=== PATIENT | female | born 1995 | race Two or more races ===

== ENCOUNTER 2020-02-15 15:30 | Emergency (ER) | payer OTHER, SELFPAY | END 2020-02-15 19:03 | disposition left against medical advice (07) | PROVIDERS: Emergency Provider Emergency Medicine | DX: R06.02 Shortness of breath (principal) ==

== ENCOUNTER 2020-03-11 13:57 | Outpatient (REF) | payer OTHER, SELFPAY | END 2020-03-11 13:58 | disposition home or self-care (01) | LOC: HO.LAB 13:57 | PROVIDERS: Visit Provider Internal Medicine | DX: Z20.822 Contact with and (suspected) exposure to COVID-19 (principal) | CPT/HCPCS: 36415; C9803; U0003; U0005 ==

== ENCOUNTER 2020-04-09 12:12 | Outpatient (REF) | payer OTHER, SELFPAY | END 2020-04-09 12:13 | disposition home or self-care (01) | LOC: HO.LAB 12:12 | PROVIDERS: Visit Provider Internal Medicine | DX: Z20.822 Contact with and (suspected) exposure to COVID-19 (principal) | CPT/HCPCS: 36415; C9803; U0003; U0005 ==

== ENCOUNTER 2020-04-20 14:31 | Outpatient (REF) | payer OTHER, SELFPAY | END 2020-04-20 14:32 | disposition home or self-care (01) | LOC: HO.LAB 14:31 | PROVIDERS: Visit Provider Internal Medicine | DX: Z20.822 Contact with and (suspected) exposure to COVID-19 (principal) | CPT/HCPCS: 36415; C9803; U0003; U0005 ==

== ENCOUNTER 2020-10-23 15:49 | Outpatient (REF) | payer OTHER, SELFPAY | END 2020-10-23 15:50 | disposition home or self-care (01) | LOC: HO.LAB 15:49 | PROVIDERS: Visit Provider Internal Medicine | DX: Z20.822 Contact with and (suspected) exposure to COVID-19 (principal) | CPT/HCPCS: C9803; U0003; U0005 ==

== ENCOUNTER 2020-11-22 17:41 | Emergency (ER) | payer OTHER, SELFPAY ==
--- NOTE | 2020-11-22 17:53 | ED_ITS ---
HPI - URI/Sore Throat General Chief Complaint: Fever Stated Complaint: COUGH SORE THROAT Source: patient Mode of arrival: ambulatory Limitations: no limitations History of Present Illness HPI Narrative: 24-year-old female presents with upper respiratory symptoms. Requesting COVID-19 and flu testing. MD elicited complaint: cough, sore throat and nasal congestion Onset (ago): day(s) (3) Consistency: constant Severity: mild Description of mucous: clear and watery Able to tolerate fluids by mouth: Yes Context: sick contacts Associated symptoms: denies other symptoms Treatments prior to arrival: none Related Data Allergies Allergy/AdvReac Type Severity Reaction Status Date / Time No Known Allergies Allergy Verified 11/22/20 18:04 [No Known Allergies*] Review of Systems Review of Systems: Constitutional: No Fever, No Chills ENT/Mouth: No Ear Pain, No Hoarseness, positive sore throat Eyes: No Eye Pain, No Swelling, No Redness, No Foreign Body Cardiovascular: No Chest Pain, No SOB Respiratory: Positive Cough, No Dyspnea Gastrointestinal: No Nausea, No Vomiting, No Diarrhea, No abdominal Pain Genitourinary: No Dysuria, No Hematuria Musculoskeletal: No joint pain, No Myalgias, No Joint Swelling Skin: No Skin lacerations, No rash Neuro: No Weakness, No Numbness, No Paresthesias, No Loss of Consciousness, No Dizziness, No Headache Psych: No Anxiety/Panic, No Depression Heme/Lymph: no easy bruising, no Lymphadenopathy Endocrine: No Polyuria, No Polydipsia Yes all other systems are reviewed and are negative PMFSH Past Medical History Attestation statement: The following information was validated with the patient. Source: old records reviewed Medical History (Updated 11/22/20 @ 19:01 by Gabby Cedillo NP) Anxiety Asthma Depression Gastritis Social History Social History Advance Directives: No Advance Directives Information Provided: No Patient : No Physical Exam Vital Signs: Vital Signs: Last Vital Signs Temp 99.0 F 11/22/20 18:05 Pulse 98 11/22/20 18:05 Resp 18 11/22/20 18:05 BP 111/73 11/22/20 18:05 Pulse Ox 97 11/22/20 18:05 Body Mass Index 22.4 Appearance: Alert. Oriented X3. No acute distress. Eyes: Pupils equal, round and reactive to light. Sclera nonicteric. ENT: Pharynx normal. Moist mucous membranes. Neck: Normal inspection. Neck supple. CVS: Normal heart rate and rhythm. Pulses normal. Respiratory: No respiratory distress. Breath sounds normal. Abdomen: Soft and nontender. Skin: Skin warm and dry. Normal skin color. Normal skin turgor. Extremities: No lower extremity edema. Moves all extremities against resist ance. Neuro: No motor deficit. No sensory deficit. Cranial nerves 2-12 intact. Course Course Course Narrative: 24-year-old female presents with upper respiratory symptoms. Presents with her children for testing for COVID-19. Physical exam is unremarkable. Vital signs are within normal limits and stable. Afebrile and nontoxic. COVID test is negative. Patient discharged home with supportive measures. Patient verbalized understanding of and agrees to plan of care discharge home. MDM - URI/Sore Throat Differential Diagnosis Differential diagnosis: Likely upper respiratory infection, sinusitis, viral infection, influenza and pharyngitis Medical Records Attestation: I reviewed the patient's medical records. Lab Data Attestation: I reviewed the patient's lab results. Labs: Lab Results 11/22/20 11/22/20 Range/Units 18:02 18:02 Coronavirus (PCR) NEGATIVE (Negative) Influenza Type A (PCR) NEGATIVE (Negative) Influenza Type B (PCR) NEGATIVE (Negative) RSV RNA Qual (PCR) NEGATIVE (Negative) S. pyogenes GrpA RENATA Negative (Negative) Discharge Plan Discharge Clinical Impression: Viral infection Patient Disposition: Home, Self-Care Instructions: Viral Syndrome (ED) Additional Instructions: You were evaluated for upper respiratory symptoms. Please continue to alternate Tylenol and Motrin as needed for pain management and fever control. Encourage fluids COVID test was negative. Thank you for choosing this emergency department for evaluation. Please follow-up with primary care physician as needed. Return to the emergency department for any new, concerning, or worsening symptoms. Interventions: ED Discharge Assessment Last Done: 11/22/20 19:27 Discharge Date/Time: 11/22/20 19:27
[2020-11-22 18:05] VITALS: BP 111/73; PULSE 98; RESP 18; TEMP 37.2; O2SAT 97; BMI 22.4
[2020-11-22 18:29] LABS: IDNOW Serial# 9DD0AD1C; Strep A Nucleic Acid Negative (Negative)
[2020-11-22 18:55] LABS: Influenza A PCR NEGATIVE (Negative); Influenza B PCR NEGATIVE (Negative); Resp Syncy Virus RNA Qual PCR NEGATIVE (Negative); SARS COV2 PCR INHOUSE NEGATIVE (Negative)
== END 2020-11-22 19:27 | disposition home or self-care (01) ==
PROVIDERS: Nurse Practitioner Family; Emergency Provider Emergency Medicine
DX: B34.9 Viral infection, unspecified (principal); J45.909 Unspecified asthma, uncomplicated; Z20.822 Contact with and (suspected) exposure to COVID-19
CPT/HCPCS: 0241U; 36415; 87651; 99282; 99283

== ENCOUNTER 2021-02-22 08:01 | Outpatient (REF) | payer OTHER, SELFPAY ==
[2021-02-22 11:16] LABS: Binax Internal Control QC Valid; Binax Now Covid-19 Ag Positive (Negative)
== END 2021-02-22 08:02 | disposition home or self-care (01) ==
LOC: HO.LAB 08:01
PROVIDERS: Visit Provider Internal Medicine
DX: Z20.822 Contact with and (suspected) exposure to COVID-19 (principal)
CPT/HCPCS: C9803

== ENCOUNTER 2021-03-04 08:08 | Outpatient (REF) | payer OTHER, SELFPAY ==
[2021-03-04 09:34] LABS: Binax Internal Control QC Valid; Binax Now Covid-19 Ag Negative (Negative)
== END 2021-03-04 08:09 | disposition home or self-care (01) ==
LOC: HO.LAB 08:08
PROVIDERS: Visit Provider Internal Medicine
DX: Z20.822 Contact with and (suspected) exposure to COVID-19 (principal)
CPT/HCPCS: C9803

== ENCOUNTER 2021-11-01 19:39 | Emergency (ER) | payer OTHER, SELFPAY ==
[2021-11-01 21:49] VITALS: BP 125/56; PULSE 65; RESP 16; TEMP 36.7; O2SAT 100; BMI 22.6
[2021-11-01 22:05] LABS: MANUAL DIFF FLAG NO
[2021-11-01 22:11] LABS: Basophils Percent Auto 0.3 % (0-2); Eosinophils Absolute Auto 0.6 X10*3/uL (0.0-0.4); Eosinophils Percent Auto 7.6 % (0-4); Hematocrit 38.8 % (37.0-47.0); Hemoglobin 12.5 g/dl (12.0-16.0); Imm Gran Abs Auto 0.01 X10*3/uL (0.00-0.03); Imm Gran Pct Auto 0.1 % (0.0-0.4); Lymphocytes Percent Auto 38.7 % (20-40); Mean Corpuscular HGB Conc 32.2 g/dl (31.0-35.0); Mean Corpuscular Hemoglobin 28.9 pg (27.0-33.0); Mean Corpuscular Volume 89.8 fL (80.0-98.0); Monocytes Absolute Auto 0.7 X10*3/uL (0.1-1.2); Monocytes Percent Auto 8.9 % (2-11); Neutrophils Absolute Auto 3.4 x10*3/uL (2.0-8.3); Neutrophils Percent Auto 44.4 % (45-73); Platelet Count 263 X10*3/uL (160-400); Red Blood Count 4.32 X10*6/uL (4.20-5.50); Red Cell Distribution Width 12.6 % (11.0-16.0); White Blood Count 7.7 X10*3/uL (4.8-10.8)
[2021-11-01 22:16] LABS: COVID-19 Test Negative (Negative); IDNOW Serial# 16C4AD1C
[2021-11-01 22:23] LABS: Anion Gap 14 (12-20); Blood Urea Nitrogen 10 mg/dL (9-16); Carbon Dioxide 26 mmol/L (22-29); Chloride 105 mmol/L (96-108); Creatinine Clr Calc Pharmacy 101.5; Estimated Glomerular Filt Rate > 60; Glucose Random 99 mg/dL (60-115); Potassium 3.8 mmol/L (3.3-5.1); Sodium 141 mmol/L (135-145)
--- NOTE | 2021-11-02 03:01 | ED.GENADULT ---
HPI - General Adult General Chief complaint: General Medical Stated complaint: vomiting Time Seen by Provider: 11/02/21 00:01 Source: patient Mode of arrival: ambulatory Limitations: no limitations History of Present Illness HPI narrative: Patient been having dry cough for last 3 days nauseated vomited today of about 4 times no diarrhea no shortness of breath Related Data Previous Rx's Medication Instructions Recorded ondansetron 4 mg disintegrating 4 mg PO Q6-8H PRN nausea and 11/02/21 tablet vomiting #7 tabs Allergies Allergy/AdvReac Type Severity Reaction Status Date / Time No Known Allergies Allergy Verified 11/22/20 18:04 [No Known Allergies*] Review of Systems Review of Systems: Yes all other systems are reviewed and are negative [facility] Past Medical History Medical History Anxiety Asthma Depression Gastritis Social History Social History Alcohol intake: never Patient Tobacco Use Status: Never used Tobacco Use of substances other than those prescribed or required for medical reasons: No Advance Directives: No Physical Exam ED Vital Signs: Vital Signs - 24 hr 11/01/21 21:49 11/02/21 03:05 11/02/21 04:38 Temperature 98.1 F 98.2 F 98.1 F Pulse Rate 65 57 63 Respiratory Rate 16 16 16 Blood Pressure 125/56 L 100/54 L 96/4 L Pulse Oximetry 100 99 100 Oxygen Delivery Method Room Air Room Air Room Air BMI result Body Mass Index 22.6 Appearance: Alert. Oriented X3. No acute distress. Eyes: PERRLA, No Nystagmus ENT: Pharynx normal. Oral Mucosa moist Neck: Normal inspection. Neck supple. CVS: Normal heart rate and rhythm. Pulses normal. Respiratory: No respiratory distress. Equal air entry bilateral, no wheezing/rales/rhonchi Abdomen: Soft and nontender. Bowel sounds are present, no mass palpable, no CVA tenderness Skin: Skin warm and dry. Normal skin color. Normal skin turgor. Extremities: No lower extremity edema. No calf tenderness Neuro: Oriented X 3. No motor deficit. No sensory deficit.No cerebellar signs , cranial nerves II-XII intact Medical Decision Making [facility] Narrative Medical decision making narrative: Patient's labs are stable no nausea no vomiting in the ER COVID negative discharge patient home [facility] Lab Data Lab results reviewed: Yes I reviewed the patient's lab results. Result diagrams: 11/01/21 21:53 11/01/21 21:53 Labs: Lab Results 11/01/21 11/01/21 11/01/21 Range/Units 21:53 21:53 21:53 WBC 7.7 (4.8-10.8) X10*3/uL RBC 4.32 (4.20-5.50) X10*6/uL Hgb 12.5 (12.0-16.0) g/dl Hct 38.8 (37.0-47.0) % MCV 89.8 (80.0-98.0) fL MCH 28.9 (27.0-33.0) pg MCHC 32.2 (31.0-35.0) g/dl RDW 12.6 (11.0-16.0) % Plt Count 263 (160-400) X10*3/uL MPV 10.0 (9.4-12.3) fL Immature Gran % (Auto) 0.1 (0.0-0.4) % Neut % (Auto) 44.4 L (45-73) % Lymph % (Auto) 38.7 (20-40) % [place] % (Auto) 8.9 (2-11) % Eos % (Auto) 7.6 H (0-4) % Baso % (Auto) 0.3 (0-2) % Lymph # (Auto) 3.0 (1.2-4.9) X10*3/uL [place] # (Auto) 0.7 (0.1-1.2) X10*3/uL Eos # (Auto) 0.6 H (0.0-0.4) X10*3/uL Baso # (Auto) 0.0 (0.0-0.2) X10*3/uL Abs Immat Gran (auto) 0.01 (0.00-0.03) X10*3/uL Absolute Neuts (auto) 3.4 (2.0-8.3) x10*3/uL Absolute Nucleated RBC 0.000 (0.0-0.012) X10*3/uL Nucleated RBC % (auto) 0.0 (0.0-0.2) /100WBC Sodium 141 (135-145) mmol/L Potassium 3.8 (3.3-5.1) mmol/L Chloride 105 (96-108) mmol/L Carbon Dioxide 26 (22-29) mmol/L Anion Gap 14 (12-20) BUN 10 (9-16) mg/dL Creatinine 0.67 (0.5-1.4) mg/dL Estim Creat Clear Calc 101.5 Estimated GFR > 60 Random Glucose 99 (60-115) mg/dL Calcium 9.0 (8.4-10.2) mg/dL Urine Color Urine Appearance Urine pH (5.0-9.0) Ur Specific [place] (1.005-1.025) Urine Protein (Neg-Trace) mg/dL Urine Glucose (UA) (Negative) mg/dL Urine Ketones (Negative) mg/dL Urine Blood (Negative) Urine Nitrite (Negative) Ur Leukocyte Esterase (Negative) Urine Test (NEGATIVE) COVID-19 (TITI) Negative (Negative) COVID-19 Clin Com See Note 11/02/21 11/02/21 Range/Units 03:19 03:19 WBC (4.8-10.8) X10*3/uL RBC (4.20-5.50) X10*6/uL Hgb (12.0-16.0) g/dl Hct (37.0-47.0) % MCV (80.0-98.0) fL MCH (27.0-33.0) pg MCHC (31.0-35.0) g/dl RDW (11.0-16.0) % Plt Count (160-400) X10*3/uL MPV (9.4-12.3) fL Immature Gran % (Auto) (0.0-0.4) % Neut % (Auto) (45-73) % Lymph % (Auto) (20-40) % [place] % (Auto) (2-11) % Eos % (Auto) (0-4) % Baso % (Auto) (0-2) % Lymph # (Auto) (1.2-4.9) X10*3/uL [place] # (Auto) (0.1-1.2) X10*3/uL Eos # (Auto) (0.0-0.4) X10*3/uL Baso # (Auto) (0.0-0.2) X10*3/uL Abs Immat Gran (auto) (0.00-0.03) X10*3/uL Absolute Neuts (auto) (2.0-8.3) x10*3/uL Absolute Nucleated RBC (0.0-0.012) X10*3/uL Nucleated RBC % (auto) (0.0-0.2) /100WBC Sodium (135-145) mmol/L Potassium (3.3-5.1) mmol/L Chloride (96-108) mmol/L Carbon Dioxide (22-29) mmol/L Anion Gap (12-20) BUN (9-16) mg/dL Creatinine (0.5-1.4) mg/dL Estim Creat Clear Calc Estimated GFR Random Glucose (60-115) mg/dL Calcium (8.4-10.2) mg/dL Urine Color Yellow Urine Appearance Cloudy Urine pH 6.5 (5.0-9.0) Ur Specific [place] 1.020 (1.005-1.025) Urine Protein Negative (Neg-Trace) mg/dL Urine Glucose (UA) Negative (Negative) mg/dL Urine Ketones Negative (Negative) mg/dL Urine Blood Negative (Negative) Urine Nitrite Negative (Negative) Ur Leukocyte Esterase Negative (Negative) Urine Test NEGATIVE (NEGATIVE) COVID-19 (TITI) (Negative) COVID-19 Clin Com Discharge Plan Discharge Clinical Impression: Acute gastroenteritis Patient Disposition: Home, Self-Care Instructions: Acute Nausea and Vomiting (ED) Additional Instructions: Drink plenty of fluids Zofran for nausea Follow with PCP if not better Prescriptions: New ondansetron 4 mg tablet,disintegrating 4 mg PO Q6-8H PRN (Reason: nausea and vomiting) Qty: 7 0RF Interventions: ED Discharge Assessment Last Done: 11/02/21 04:59 Discharge Date/Time: 11/02/21 05:00
[2021-11-02 03:05] VITALS: BP 100/54; PULSE 57; RESP 16; TEMP 36.8; O2SAT 99
[2021-11-02] MEDS: Ondansetron ODT 4 MG TAB.RAPDIS TRANSLINGU (03:11)
--- NOTE | 2021-11-02 03:11 | PC.NURSE ---
Pt resting in bed with no sign of distress. Medicated for nausea per mar. Will continue to monitor.
[2021-11-02 03:33] LABS: Appearance Urine Cloudy; Color Urine Yellow; Glucose Urine UA Negative (Negative); Leukocyte Esterase Urine Negative (Negative); Nitrite Urine Negative (Negative); PH 6.5 (5.0-9.0); Urine Blood Negative (Negative); Urine Ketones Negative (Negative); Urine Protein Negative (Neg-Trace)
[2021-11-02 03:37] LABS: UPreg QC Valid YES; Urine Pregnancy NEGATIVE (NEGATIVE)
[2021-11-02 04:38] VITALS: BP 96/4; PULSE 63; RESP 16; TEMP 36.7; O2SAT 100
== END 2021-11-02 05:00 | disposition home or self-care (01) ==
PROVIDERS: Emergency Provider Internal Medicine
DX: K52.9 Noninfective gastroenteritis and colitis, unspecified (principal); R05.9 Cough, unspecified; R11.2 Nausea with vomiting, unspecified; Z20.822 Contact with and (suspected) exposure to COVID-19; Z79.899 Other long term (current) drug therapy
CPT/HCPCS: 80048; 81003; 81025; 85025; 87635; 99283; 99284

== ENCOUNTER 2022-09-02 09:00 | Outpatient (RCR) | payer OTHER, SELFPAY | END 2022-10-13 07:29 | disposition home or self-care (01) | LOC: HO.PT 09:00 | PROVIDERS: PCP Internal Medicine; Visit Provider Physician Assistant | DX: M22.41 Chondromalacia patellae, right knee (principal) | CPT/HCPCS: 97110; 97161; 97530 ==

== ENCOUNTER 2025-01-24 19:51 | Emergency (ER) | payer OTHER, SELFPAY ==
[2025-01-24 20:08] VITALS: BP 101/51; PULSE 87; RESP 18; TEMP 36.8; O2SAT 94; BMI 24.8
[2025-01-24 21:03] LABS: MANUAL DIFF FLAG NO
[2025-01-24 21:05] LABS: Hematocrit 34.7 % (37.0-47.0); Hemoglobin 11.5 g/dl (12.0-16.0); Imm Gran Abs Auto 0.02 X10*3/uL (0.00-0.03); Imm Gran Pct Auto 0.2 % (0.0-0.4); Lymphocytes Absolute Auto 2.7 X10*3/uL (1.2-4.9); Mean Corpuscular HGB Conc 33.1 g/dl (31.0-35.0); Mean Corpuscular Hemoglobin 29.0 pg (27.0-33.0); Mean Corpuscular Volume 87.4 fL (80.0-98.0); NRBC Abs Auto 0.000 X10*3/uL (0.0-0.012); NRBC Pct Auto 0.0 /100WBC (0.0-0.2); Platelet Count 254 X10*3/uL (160-400); Red Blood Count 3.97 X10*6/uL (4.20-5.50); White Blood Count 9.2 X10*3/uL (4.8-10.8)
--- OUTSIDE RECORDS SUMMARY | 2025-01-24 21:16 | XMS_ITS | Clinical Summary ---
Author Organization [employer] [facility] Address [address] [place] [address] Care Team Providers Care Director Of Corporate Marketing Name Role Phone Unavailable Primary Care Provider Unavailabl e Allergies No known active allergies Medications Hospital, Clinic, or Other Facility Administered Medication Ordered Dose Route Frequency Start Date End Date Status doxycycline (Vibramycin) capsule 100 mgIndications:Chlamydia 100 mg PO 2 times daily 02/14/2023 Active Social History Tobacco Use Types Packs/Day Years Used Date Smoking Tobacco: Never Assessed Comments Unknown Sex and Gender Information Value Date Recorded Sex Assigned at Female 12/06/2021 10:26 AM EDT Legal Sex Female 10:26 AM EDT Gender Identity Female 12/06/2021 10:26 AM EDT Sexual Orientation Don't know 12/06/2021 10 :26 AM EDT Plan of Treatment Health Maintenance Due Date Last Done Comments Depression Screening 1995 HIV Screening 1995 SDOH Screening 1995 Disability Screening 1995 Alcohol/Substance Use Screening 2007 Tobacco Screening 2007 Family Planning (PISQ) 12/16/2010 HPV Vaccines (1 - 3-dose series) 12/16/2010 Hepatitis C Screening 12/16/2013 Pap Smear 12/16/2016 COVID-19 Vaccine ( season) 2024 03/24/2021, 08/17/2020, 07/27/2020 Influenza Vaccine (#1) 2024 , 01/20/2021, 11/20/2019, Additional history exists DTaP/Tdap/Td Vaccines (10 - Td or Tdap) 04/03/2030 04/03/2020, 05/31/2019, 05/03/2019, Additional history exists Zoster Vaccines (1 of 2) 12/16/2045 RSV Patients and Patients Aged 60 years or older (1 - 1-dose 75+ series) 12/16/2070 Hepatitis B Vaccines Completed 06/25/1996, 05/01/1996, 02/20/1996 HIB Vaccines Completed 03/27/1997, 06/07, 05/01/1996, Additional history exists IPV Vaccines Completed 12/27/1999, 06/07, 05/01/1996, Additional history exists Hepatitis A Vaccines Aged Out No long er eligible based on patient's age to complete this topic Meningococcal B Vaccine Aged Out No l onger eligible based on patient's age to complete this topic Meningococcal Vaccine Aged Out No li campos eligible based on patient's age to complete this topic Pneumococcal Vaccine: Pediatrics (0 to 5 Years) and At-Risk Patients (6 to 49) Years Aged Out No longer eligible based on patient's age to complete this topic RSV under 20 months Aged Out No longe r eligible based on patient's age to complete this topic Rotavirus Vaccines Aged Out No longer eligible based on patient's age to complete this topic Insurance STANDARD
--- OUTSIDE RECORDS SUMMARY | 2025-01-24 21:17 | XMS_ITS | Clinical Summary ---
Author Organization [facility] Address [address] [facility] [address] [place] [address] Phone Care Team Providers Care Dimension Warehouse Supervisor Name Role Phone Nelsy Fox MD Primary Care Provider + Allergies No known active allergies Medications SUMAtriptan (IMITREX) 50 MG tablet PLEASE SEE ATTACHED FOR DETAILED DIRECTIONS 4 Active Riboflavin 400 MG tablet Take 1 tablet by mouth 1 (one) time each day 4 Active pyridoxine (VITAMIN B-6) 25 MG tablet TAKE 1 TABLET BY MOUTH 3 TIMES A DAY FOR 60 DAYS NEEDED FOR NAUSEA AND VOMITING 4 Active multivitamin () 27-0.8 MG tablet Take 1 tablet by mouth 1 (one) time each day 4 Active ondansetron (ZOFRAN) 4 MG tablet TAKE 1 TABLET BY MOUTH EVERY 8 HOURS FOR 10 DAYS. TAKE ONLY NEEDED FOR NAUSEA/VOMITING 4 Active magnesium oxide (MAG-OX) 400 MG tablet Take 1 tablet by mouth 4 Active ferrous sulfate 325 (65 Fe) MG tablet 1 TABLET BY MOUTH 2 TIMES A DAY, FOR 90 DAYS,MAY TAKE WITH FOOD TO MINIMIZE ABDOMINAL DISCOMFORTR 4 Active Heartburn Relief 10 MG tablet TAKE 1 TABLET BY MOUTH DAILY (MAY REPEAT DOSE IF NEEDED, NOT TO EXCEED 2 TABLETS/DAY) 4 Active doxycycline (VIBRAMYCIN) 100 MG capsule Take 100 mg by mouth in the morning and 100 mg in the evening. 4 Active cephalexin (KEFLEX) 500 MG capsule TAKE 2 CAPSULES BY MOUTH THREE TIMES A DAY FOR 4 MORE DAYS (06/20 - 06/23) 4 Active acetaminophen (TYLENOL) 325 MG tablet TAKE 2 TABLETS BY MOUTH EVERY 6 HOURS NEEDED FOR MILD PAIN OR TEMPERATURE GREATER THAN 100.5 4 Active Active Problems Problem Noted Date Diagnosed Date Asthma 07/14/2023 Headache 07/14/2023 FH: Puerperal depression 07/14/2023 Social History Tobacco Use Types Packs/Day Years Used Date Smoking Tobacco: Never Assessed Comments Unknown Sex and Gender Information Value Date Recorded Sex Assigned at Not on file Legal Sex Female 12:05 PM EDT Gender Identity Not on file Sexual Orientation Not on file Last Filed Vital Signs Vital Sign Reading Time Taken Comments Blood Pressure 102/56 07/14/2023 10:05 AM EDT Pulse 94 07/14/2023 10:05 AM EDT Temperature - - Respiratory Rate - - Oxygen Saturation - - Inhaled Oxygen Concentration - - Weight 61.2 kg (135 lb) 07/14/2023 10:05 AM EDT Height - - Body Mass Index - - Plan of Treatment Health Maintenance Due Date Last Done Comments Pneumococcal Vaccine: Peds ( 0 to 5 Years) and At-Risk Patients (6 to 49 Years) (1 of 2 - PCV) 12/16/2014 Influenza Vaccine (#1) 2024 Hepatitis B Vaccine Completed 06/25/1996, 05/01/1996, 02/20/[address] [place] [address] Medicaid [employer] Medicaid Care Teams Dimension Warehouse Supervisor Relationship Specialty Start Date End Date Nelsy Fox MD [address] [place] [id number] PCP - General Design Verification Engineer 07/01/23
--- OUTSIDE RECORDS SUMMARY | 2025-01-24 21:17 | XMS_ITS | Patient Health Record ---
Author Organization [facility] Address [address] [place] [address] Care Team Providers Care Dowel Pin Worker Name Role Phone Jeanne Rodriguez Primary Care Provider Sukhjinder Castillo Jr Reason For Referral No Information Medications Medication SIG (Take, Route, Frequency, Duration) Notes Start Date End Date Status FLUoxetine HCl 10 MG Capsule 1 capsule in the morning Orally Once a day Active Social History Social History Additional Details Category Social Info Options Details Miscellaneous: Marital status: single Occupation: [employer] Problems Problem Type SNOMED Code ICD Code Onset Dates Problem Status W/U Status Risk Notes Problem Epigastric pain (35711777) Abdominal pain, epigastric (789.06) Active confirmed Plan Of Treatment Pending Test Test Name Order Date XR GI SERIES 05/23/2014 Insurance Providers Payer Name Payer Address Payer Phone Subscriber Number Group Number Insured Name Patient Relationship to Insured Coverage Start Date Coverage End Date [facility] [address] [place] [address] [phone] [id number] [id number] [id number] Self - patient is the insured Medical (General) History Medical History History ICD Code asthma Denies [place],DM,CVA,renal disease
[2025-01-24 21:29] LABS: Alanine Aminotransferase 9 U/L (0-31); Albumin Level 3.9 g/dL (3.5-5.0); Alkaline Phosphatase 66 U/L (39-117); Anion Gap 11 (12-20); Aspartate Amino Transferase 15 U/L (5-31); Blood Urea Nitrogen 10 mg/dL (9-16); Calcium 9.0 mg/dL (8.4-10.2); Carbon Dioxide 22 mmol/L (22-29); Chloride 111 mmol/L (96-108); Creatinine Clr Calc Pharmacy 127.8; Estimated Glomerular Filt Rate > 60; Lipase 35 U/L (8-78); Potassium 3.9 mmol/L (3.3-5.1); Sodium 140 mmol/L (135-145); Total Protein 6.7 g/dL (6.5-8.0)
[2025-01-24 22:05] VITALS: BP 90/45; PULSE 79; RESP 18; TEMP 37; O2SAT 100
--- NOTE | 2025-01-24 23:23 | ED.GENADULT ---
HPI - General Adult General Chief complaint: Vaginal Bleeding Stated complaint: miscarriage Time Seen by Provider: 01/24/25 22:56 Source: patient, RN notes reviewed and old records reviewed Mode of arrival: ambulatory Limitations: no limitations History of Present Illness ED Provider: Rico NGUYEN narrative: 29-year-old female presents for evaluation of vaginal bleeding and cramping. She reports that she is about 7 weeks . She believes she had a miscarriage this morning with heavy vaginal bleeding with clots She reports that she is still bleeding. She is . Three of her 4 live births were premature but none before 34 weeks She has some lower abdominal/pelvic cramping but denies any severe pain She went to [facility] on 01/13/2025 and was told she had an intrauterine without any issues Your blood type is A positive Related Data Previous Rx's ?Medication ?Instructions ?Recorded ondansetron 4 mg disintegrating 4 mg PO Q6-8H PRN nausea and 11/02/21 tablet vomiting #7 tabs Allergies Allergy/AdvReac Type Severity Reaction Status Date / Time No Known Allergies (No Known Allergy Verified 01/24/25 20:10 Allergies*) Review of Systems Constitutional: Constitutional: Denies body ache(s), Denies chills, Denies fever(s), Denies frequent falls and Denies headache(s) Eyes: Eyes: Denies blurry vision ENT: Denies vertigo, Denies dizziness and Denies headache(s) Cardiovascular: Cardiovascular: Denies chest pain and Denies dyspnea on exertion Respiratory: Respiratory: Denies cough and Denies dyspnea on exertion Gastrointestinal: Gastrointestinal: Reports abdominal pain, Denies nausea and Denies vomiting Genitourinary: Genitourinary: Reports pelvic pain Comments: Reports vaginal bleeding Musculoskeletal: Musculoskeletal: Denies back pain Integumentary/Breasts: Skin/Breast: Denies rash Neurologic: Denies vertigo, Denies dizziness, Denies frequent falls and Denies headache(s) Psychiatric: Psychiatric: Denies anxiety PMFSH Past Medical History Medical History Anxiety Asthma Depression Gastritis Social History Social History Alcohol intake: never Patient Tobacco Use Status: Never used Tobacco Advance Directives: No Advance Directives Information Provided: No Do you have a plan to hurt others: No Plan Physical Exam ED Vital Signs: Vital Signs - 24 hr 01/24/25 20:08 01/24/25 22:05 Temperature 98.3 F 98.6 F Pulse Rate 87 79 Respiratory Rate 18 18 Blood Pressure 101/51 L 90/45 L Pulse Oximetry 94 100 Oxygen Delivery Method Room Air Room Air BMI result Body Mass Index 24.8 Const General: healthy appearing, comfortable, no acute distress, alert and awake Nutritional Appearance: well nourished Orientation/consciousness: patient oriented x3 HENMT Head: Yes normocephalic and Yes atraumatic Eyes Eyelids: Yes eyelids normal Conjunctivae: conjunctivae normal Sclerae: sclerae normal Corneas: corneas normal Pupils: Equal, round and reactive pupils present EOM: EOMs intact bilaterally Neck Neck: Yes full ROM Resp Effort & Inspection: normal respiratory effort, able to speak in complete sentences and not labored GI Inspection: No distended Palpation (GI): Soft to palpation, not firm, nontender, no guarding and not rigid External Female Exam: normal external appearance Speculum Exam - Vagina: normal appearance of the vagina Speculum Exam - Cervix: Cervical os open (There is large, approximately 2 cm blood clot within the cervical os) OB/external & speculum: Cervical os open (There is large, approximately 2 cm blood clot within the cervical os) Skin General skin exam: elasticity normal Neuro General: patient oriented x3 Cranial nerves: Yes Equal, round and reactive pupils present and Yes Bilaterally intact EOM present Cognition (Neuro): normal cognition Extrem Other: Moving all extremities well without any obvious deformities Course Reevaluation(s) Reevaluation #1: With female nursing staff, Kiki Gan present, a pelvic examination was performed. The cervical os was open about 2 cm. There was significant blood clot within it. I removed as a fairly significant amount of blood clot from the cervical os. The os remain open and I could still see clot forming from the cervical canal. At this time, we will discuss with [facility] Time: 00:00 Reevaluation #2: Received a call back from [facility], Dr Antoine. I discussed with the patient's case with her. We are both in agreement that the patient is currently hemodynamically stable. She offered to accept the patient in transfer but the patient could safely be discharged if she wishes with instructions to return if she develops lightheadedness, dizziness, worsening bleeding, severe pain or syncope. I discussed the risks and benefits of transfer versus going home with the patient and she elected to be discharged home. She understands that if things are worsening she should present to [facility] directly Time: 00:55 Medical Decision Making Medical Decision Making [facility] Narrative: 29-year-old female who is presents for evaluation of a suspected miscarriage. She reports heavy vaginal bleeding with clots since this afternoon. She is blood type A positive will not need RhoGAM. Unfortunately ultrasound is unavailable at this time of night. I was able to review [facility] it is [facility] and the patient had an intrauterine gestation on 01/13/2025. Her serum hCG at the time was about [address]22. Today the patient is mildly hypotensive at initially 101/51, her repeat blood pressure 2 hours later was 90/45. She is not tachycardic, she is quite well appearing. She has no leukocytosis but does have a mild anemia with a hemoglobin 11.5 and a hematocrit 34.7. Likely due to her menstrual bleeding. Non chemistries without any concerning findings. [place] [address] which represents a urinary no focal about a 33% decreased from her labs patient's 11 days ago. This is quite concerning for a spontaneous . Plan for pelvic examination to see if the cervical os is open and if there were products of conception within the cervical os. Differential Diagnosis Differential Diagnoses: The differential diagnosis associated with the presentation includes Bilateral leg and spontaneous Miscarriage Threatened Early Lab Data [facility] Lab Attestation statement: I reviewed the patient's lab results. As above 01/24/25 20:55 01/24/25 20:55 Labs: Lab Results 01/24/25 Range/Units 20:55 WBC 9.2 (4.8-10.8) X10*3/uL RBC 3.97 L (4.20-5.50) X10*6/uL Hgb 11.5 L (12.0-16.0) g/dl Hct 34.7 L (37.0-47.0) % MCV 87.4 (80.0-98.0) fL MCH 29.0 (27.0-33.0) pg MCHC 33.1 (31.0-35.0) g/dl RDW 12.7 (11.0-16.0) % Plt Count 254 (160-400) X10*3/uL MPV 10.1 (9.4-12.3) fL Immature Gran % (Auto) 0.2 (0.0-0.4) % Neut % (Auto) 60.6 (45-73) % Lymph % (Auto) 29.3 (20-40) % [place] % (Auto) 6.9 (2-11) % Eos % (Auto) 2.8 (0-4) % Baso % (Auto) 0.2 (0-2) % Lymph # (Auto) 2.7 (1.2-4.9) X10*3/uL [place] # (Auto) 0.6 (0.1-1.2) X10*3/uL Eos # (Auto) 0.3 (0.0-0.4) X10*3/uL Baso # (Auto) 0.0 (0.0-0.2) X10*3/uL Abs Immat Gran (auto) 0.02 (0.00-0.03) X10*3/uL Absolute Neuts (auto) 5.6 (2.0-8.3) x10*3/uL Absolute Nucleated RBC 0.000 (0.0-0.012) X10*3/uL Nucleated RBC % (auto) 0.0 (0.0-0.2) /100WBC Sodium 140 (135-145) mmol/L Potassium 3.9 (3.3-5.1) mmol/L Chloride 111 H (96-108) mmol/L Carbon Dioxide 22 (22-29) mmol/L Anion Gap 11 L (12-20) BUN 10 (9-16) mg/dL Creatinine 0.56 (0.5-1.4) mg/dL Estim Creat Clear Calc 127.8 Estimated GFR > 60 Random Glucose 103 (60-115) mg/dL Calcium 9.0 (8.4-10.2) mg/dL Total Bilirubin 0.1 (0.0-1.0) mg/dL AST 15 (5-31) U/L ALT 9 (0-31) U/L Alkaline Phosphatase 66 (39-117) U/L Total Protein 6.7 (6.5-8.0) g/dL Albumin 3.9 (3.5-5.0) g/dL Lipase 35 (8-78) U/L Beta HCG, Quant 95517 mIU/mL Discharge Plan Discharge Clinical Impression: Spontaneous Patient Disposition: Home, Self-Care Instructions: Miscarriage (ED) Additional Instructions: Unfortunately it appears that you were having a miscarriage. It is normal to bleed fairly heavily during this If you are having worsening symptoms, if you are bleeding through 1 pad an hour, if you develop lightheadedness, dizziness, shortness of breath or syncope, you should call 911 or present directly to [facility] Prescriptions: No Action ondansetron 4 mg tablet,disintegrating 4 mg PO Q6-8H PRN (Reason: nausea and vomiting) Qty: 7 0RF Print Language: Bangladeshi
--- NOTE | 2025-01-25 00:15 | PC.NURSE ---
This RN and PA Julio C at bedside to perform pelvic exam. Pt tolerated procedure well.
[2025-01-25 01:02] VITALS: BP 100/60; PULSE 72; RESP 18; TEMP 37; O2SAT 99
== END 2025-01-25 01:03 | disposition home or self-care (01) ==
PROVIDERS: Emergency Provider Emergency Medicine Emergency Medical Services; PCP Internal Medicine
DX: O03.9 Complete or unspecified spontaneous abortion without complication (principal); I95.9 Hypotension, unspecified
CPT/HCPCS: 36415; 80053; 83690; 84702; 85025; 99283; 99284